=== PATIENT | male | born 1960 | race Caucasian/White ===

== ENCOUNTER 2019-01-31 10:45 | Emergency (ER) | payer OTHER ==
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
--- NOTE | 2019-01-31 12:20 | Diagnostic Imaging Report ---
DIANNE ONTIVEROS [facility] [address] [facility] [address] [address] Report Submission Date: Jan 31, 2019 12:11:41 PM CDT Patient Study Name: ELIZABETH RIGGINS Date: Jan 31, 2019 11:20:57 AM CDT Modality Type: DX Gender: M Description: CHEST 2VIEW : 58 Institution: [facility] Physician: DIANNE ONTIVEROS Examination: PA and lateral chest. History: Evaluate lung agarwal. Comparison exam: None provided. Findings: PA and lateral views of the chest demonstrates a normal cardiac and mediastinal silhouette. Mildly tortuous aorta. No focal infiltrate. No blunting of the costophrenic margins. Right lateral rib irregularities. Lower left ribs irregularities. Impression: No acute pulmonary process. Bilateral rib irregularities - chronicity indeterminate. Given patient's history of injury, recommend dedicated bilateral rib series. Electronically signed on Jan 31, 2019 12:11:41 PM CDT by: Michael DE LA TORRE
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
[2019-01-31 12:47] VITALS: BP 156/99
== END 2019-01-31 12:33 | disposition home or self-care (01) ==
LOC: ED 10:45
DX: S49.91XA Unspecified injury of right shoulder and upper arm, initial encounter (principal); S80.911A Unspecified superficial injury of right knee, initial encounter; V29.9XXA Motorcycle rider (driver) (passenger) injured in unspecified traffic accident, initial encounter
CPT/HCPCS: 71046; 72040; 72170; 73030; 73562; 99281; 99284